=== PATIENT | female | born 1990 | race Two or more races ===

== ENCOUNTER 2025-07-23 07:56 | Emergency (ER) | payer MEDICAID, SELFPAY ==
[2025-07-23 08:05] VITALS: BP 114/84; PULSE 101; RESP 16; TEMP 36.6; O2SAT 98; BMI 25.5
--- NOTE | 2025-07-23 08:27 | PD.EDFEVER ---
ED Fever RME/HPI General Chief Complaint: Fever Stated Complaint: Fever X 5 days, nausea Time Seen by Provider: 07/23/25 08:09 Arrival date/time: 07/23/25 07:56 This is a 35-year-old female that comes into the emergency room with complaints of fever, back pain, headache for the past 5 days. Patient states today she also had some nausea and some mild abdominal pain. Patient denies any past medical history. Related Data Previous Rx's ?Medication ?Instructions ?Recorded ibuprofen 800 mg tablet 800 mg PO Q6H PRN pain #14 tabs 07/23/25 ondansetron 4 mg disintegrating 4 mg PO Q6H PRN nausea and 07/23/25 tablet vomiting #10 tabs Allergies Allergy/AdvReac Type Severity Reaction Status Date / Time Penicillins Allergy Mild Difficulty Verified 07/23/25 08:02 Breathing Review of Systems Review of Systems Systems Reviewed: All systems reviewed, normal except as documented Past Medical History Past Medical History Comments PMH COMMENT: Denies Physical Exam Narrative Physical exam: VITAL SIGNS: Reviewed. GENERAL APPEARANCE: Alert and interactive, follows commands, no acute distress, HEAD AND FACE: Non-traumatic. ENT: PERRL, conjuctiva pink and clear, eyelid no trauma, Mucous membrane moist. NECK: Supple, nontender, no nuchal rigidity. CHEST: No tenderness, no crepitus, no paradoxical movement, no retractions. LUNGS: Clear, well ventilated, symmetric, no rales, no wheezing, no rhonchi, no stridor, good breath sounds bilaterally. HEART: Regular rate, regular rhythm, no murmur, no gallops. ABDOMEN: Soft, nondistended, no guarding, nontender, no rebound, no masses, NEUROLOGICAL: Gross motor function intact sensory function intact, Appropriate for age. MUSCULOSKELETAL: low back nontender, full range of motion. EXTREMITIES: No redness no swelling no skin breakdown on bilateral foot and leg. Distal neurovascular status intact bilateral foot SKIN: Color pink, dry Course Quality Measures none Orders Category Date Time Status Bedside COVID-19 Antigen Test NOW Care 07/23/25 08:[address] abdomen pelvis wo con Stat Exams 07/23/25 11:49 Completed CBC Stat Lab 07/23/25 08:50 Completed Comprehensive Metabolic Panel Stat Lab 07/23/25 08:50 Completed HCG Qualitative,Urine Stat Lab 07/23/25 08:29 Completed Influenza A & B Rapid Panel Stat Lab 07/23/25 08:29 Completed Lipase Stat Lab 07/23/25 08:50 Completed Urinalysis, C/S if Indicated Stat Lab 07/23/25 08:29 Completed Ibuprofen Tab [Motrin Tab] Med 07/23/25 11:50 Discontinued 800 mg PO X1 ONE Ondansetron Odt [Zofran Odt] Med 07/23/25 08:23 Discontinued 4 mg PO X1 ONE Vital Signs Vital signs: Vital Signs Temperature 97.9 F 07/23/25 08:05 Pulse Rate 101 H 07/23/25 08:05 Respiratory Rate 16 07/23/25 08:05 Blood Pressure 114/84 07/23/25 08:05 Pulse Oximetry (%) 98 07/23/25 08:05 Oxygen Delivery Method Room Air 07/23/25 08:05 Fever MDM Narrative MDM Narrative:: I reviewed case with at this time will discharge patient. Spoke to patient at length. Labs reviewed. Patient CBC unremarkable BMP unremarkable. Patient does have elevated liver function test. On CT scan patient does have an enlarged liver. Patient has a history of her gallbladder being removed in the past. UA shows hematuria and some leukocyte esterase in the urine. No white blood cells really patient not really having urinary symptoms. I spoke to patient about possibly treating for UTI will send for urine culture. Patient told to follow-up with primary provider about possibly getting an ultrasound of her pelvis for a possible ovarian cyst on the left side. Patient may need another ultrasound of her liver. Unknown how long patient's liver has been enlarged. LFTs are elevated bilirubin is normal. Lipase is normal. Explained to patient at length to come back to the emergency room if symptoms change or worsen. Patient can take Tylenol ibuprofen for pain. Will treat for UTI. Pt also had a small pupule on finger approx 2-3 mm. Mild erythema. If infected keflex will tx this too. Patient denies any vaginal bleeding vaginal discharge. Patient feels comfortable with plan of care and verbalized understanding CT absdomen and pelvis: Findings: Lung bases are clear. The liver is distended to 20.1 cm with diffuse fatty infiltration. Gallbladder surgically absent. Pancreas, spleen, bilateral adrenal glands and bilateral kidneys appear normal in size and contour. Visualized GI tract is unremarkable. Appendix is not definitively visualized. 4.5 cm oval fluid density left adnexa. Pelvic structures otherwise unremarkable. No evidence of right lower quadrant inflammation. No evidence of acute bony abnormality. No evidence of significant degenerative changes seen in the visualized spine. . Impression: Hepatomegaly with diffuse fatty infiltration. 4.5 cm oval fluid density left adnexa. Findings may represent an ovarian cyst. This could be further characterized with ultrasound if clinically indicated Dragon dictation: Although this document has been carefully reviewed, there may still be some phonetic and other typographical errors. These errors are purely grammatical due to imperfections in the software program and should not be construed in any way to compromise the substance of the patient's medical care during this visit. Patient data External records reviewed:: [facility] previous records Clinical information provided by:: patient Social determinants that could affect healthcare access:: none Patient has the following chronic illnesses:: none How is presenting disease/condition affected by chronic disease/condition?: no chronic disease Evaluation data The following diagnostics were reviewed and interpreted by me:: lab results and radiology exam(s) Lab and/or radiology exams considered but not ordered:: none Interpretation Summary: see note Medications / Prescriptions Medications or Prescriptions considered but not ordered:: none Medication administrations:: Medication Administration History Discontinued Medications Ibuprofen (Ibuprofen Tab 400 Mg Tablet) 800 mg PO X1 ONE Stop: 07/23/25 11:51 Last Admin: 07/23/25 12:22 Dose: 800 mg Documented By: LEONEL Ondansetron HCl (Ondansetron Odt 4 Mg Tabrap) 4 mg PO X1 ONE; Protocol Stop: 07/23/25 08:24 Last Admin: 07/23/25 08:37 Dose: 4 mg Documented By: LAUREN casillas Consultations Consultation(s) initiated? (list below): No Diagnosis Fever Differential Diagnosis: cellulitis, community acquired pneumonia, pyelonephritis, viral infection, influenza and other (uti) Most likely diagnosis given after review of the tests above:: uti Admission Indicated Admission indicated?: not indicated Admission Request Was there a request for admission?: No Disposition Plan Disposition Plan: Discharge Discharge Attestation Discharge Attestation: The patient and all family members were given an opportunity to ask questions and understood the discharge instructions. Discharge instructions specifically effects, indications for sooner follow up or return to the emergency department, and the expected course of current diagnosis. Patient condition: Stable Discharge Plan Plan Patient Disposition: HOME (Self Care) Patient condition on transfer: Stable Prescriptions/Referrals Prescriptions/Med Rec: New ondansetron 4 mg tablet,disintegrating 4 mg PO Q6H PRN (Reason: nausea and vomiting) Qty: 10 0RF ibuprofen 800 mg tablet 800 mg PO Q6H PRN (Reason: pain) Qty: 14 0RF Referrals: Edgardo Rodriguez MD [Primary Care Provider, Family Practice] - In 1 week Problem List Clinical Impression: Hematuria, Elevated liver enzymes, Back pain, Fever Patient/Caregiver Discharge Instructions Discharge Activity: activity as tolerated Education Materials: ED Back Pain (Acute or Chronic), ED Hematuria Additional Instructions: Please call and make an appointment with primary provider in 1 to 2 days. Come back to the emergency room if symptoms change or worsen. Print Language: Polish Stand Alone Forms: Griselda Award Info., Patient Portal Info Letter PA/MANAGER NURSING HOME Supervising Physician PA/MANAGER [facility]URSING HOME Supervising Physician: nacho
[2025-07-23 08:36] LABS: Collection Type, Urine Voided
[2025-07-23] MEDS: ONDANSETRON ODT 4 MG TABRAP PO (08:37)
[2025-07-23 08:51] LABS: Bilirubin,Urine Negative (Negative); Blood,Urine 1+ (Negative); Clarity,Urine Clear (Clear/Hazy); Color,Urine Yellow (Lt Yel-Yel); Culture Indicated,Urine Not Indicated; Glucose, Urine Negative (Negative); Ketones,Urine Negative (Negative); Leukocyte Esterase,Urine Positive (Negative); Nitrite,Urine Negative (Negative); PH,Urine 6.0 (5.0-7.0); Protein,Urine 1+ (Neg - Trace); RBC,Urine 9 /hpf (0-3); Specific Gravity,Urine 1.027 (1.001-1.035); Squamous Epithelial Cell,Urine 2 /hpf (0-5); Urobilinogen,Urine Negative mg/dL (0.0-1.0); WBC,Urine 1 /hpf (0-5)
[2025-07-23 08:52] LABS: HCG Qualitative,Urine Negative
[2025-07-23 08:59] LABS: Basophils # (Auto) 0.0 Thou/mm3 (0.0-0.2); Basophils % (Auto) 0 % (0-2.5); Eosinophils # (Auto) 0.1 Thou/mm3 (0.0-0.5); Eosinophils % (Auto) 1 % (0-10); Hematocrit 41.2 % (36.0-46.0); Hemoglobin 13.6 g/dL (12.0-16.0); Immature Granulocytes Auto 0.02 Thou/mm3 (0.00-0.00); Lymphocytes # (Auto) 1.4 Thou/mm3 (1.0-4.8); Lymphocytes % (Auto) 33 % (10-50); Mean Corpuscular HGB Conc 33.0 g/dl (31.0-37.0); Mean Corpuscular Hemoglobin 28.5 pg (25.0-35.0); Mean Corpuscular Volume 86 fL (80-100); Monocytes # (Auto) 0.4 Thou/mm3 (0.0-0.8); Monocytes % (Auto) 10 % (0-12); Neutrophils # (Auto) 2.4 Thou/mm3 (1.8-7.7); Neutrophils % (Auto) 55 % (37-80); Nucleated Red Blood Cell # 0.00 Thou/mm3 (0.00-0.00); Nucleated Red Blood Cell % 0 /100 WBC (0); Platelet Count 184 Thou/mm3 (140-440); RDW Standard Deviation 40.7 fL (36.4-46.3); Red Blood Count 4.78 Miln/mm3 (4.00-5.20); White Blood Count 4.3 Thou/mm3 (3.6-11.0)
[2025-07-23 09:36] LABS: Alanine Aminotransferase 107 U/L (10-49); Albumin, Serum 4.9 gm/dL (3.5-5.0); Albumin/Globulin Ratio 1.8 (1.2-2.2); Alkaline Phosphatase 78 U/L (46-116); Anion Gap 11 (7-16); Aspartate Amino Transferase 97 U/L (0-34); BUN/Creatinine Ratio 9 Ratio (12-20); Bilirubin,Total 0.5 mg/dL (0.3-1.2); Blood Urea Nitrogen 8 mg/dL (9-23); Calcium 9.3 mg/dL (8.3-10.6); Calcium (Corrected) 9.3 mg/dL (8.5-10.1); Carbon Dioxide 25.4 mMol/L (20.0-31.0); Chloride 103 mMol/L (98-107); Creatinine (Component) 0.9 mg/dL (0.6-1.3); Estimated Creatinine Clearance 71.0 mL/min (>60); Globulin 2.7 gm/dL (2.3-3.5); Glucose 98 mg/dL (74-106); Lipase 23 U/L (12-53); Osmolality,Calculated 275 (275-295); Potassium 3.8 mMol/L (3.4-5.1); Sodium 139 mMol/L (136-145); Total Protein 7.6 gm/dL (5.7-8.2); eGFR > 60 See Note
[2025-07-23 10:41] LABS: Influenza A Ag Negative; Influenza B Ag Negative
--- NOTE | 2025-07-23 11:49 | XR_ITS ---
Examination: CT abdomen and pelvis without contrast. Coronal 3-D reconstructions. Sagittal 2-D reconstructions. Date and time of exam: 825, 12:07 p.m. INDICATION: Fever and low back pain. CTDI: vol (mGy): 6.49 DLP: (mGycm): 324 Technique: Axial images of the abdomen have been obtained, 3 mm slice thickness Intravenous contrast material has not been administered. Low dose protocols were performed. One or more of the following dose reduction techniques were used; automated exposure control, adjustment of the mA and/or KV according to patient size, use of iterative reconstruction technique. Findings: Lung bases are clear. The liver is distended to 20.1 cm with diffuse fatty infiltration. Gallbladder surgically absent. Pancreas, spleen, bilateral adrenal glands and bilateral kidneys appear normal in size and contour. Visualized GI tract is unremarkable. Appendix is not definitively visualized. 4.5 cm oval fluid density left adnexa. Pelvic structures otherwise unremarkable. No evidence of right lower quadrant inflammation. No evidence of acute bony abnormality. No evidence of significant degenerative changes seen in the visualized spine. . Impression: Hepatomegaly with diffuse fatty infiltration. 4.5 cm oval fluid density left adnexa. Findings may represent an ovarian cyst. This could be further characterized with ultrasound if clinically indicated
[2025-07-23] MEDS: IBUPROFEN TAB 400 MG TABLET 800 MG PO (12:22)
[2025-07-23 14:02] VITALS: BP 104/74; PULSE 84; RESP 16; TEMP 36.6; O2SAT 99
== END 2025-07-23 14:05 | disposition home or self-care (01) ==
PROVIDERS: Nurse Practitioner Family; Emergency Provider Emergency Medicine; PCP Family Medicine
DX: R50.9 Fever, unspecified (principal); R31.9 Hematuria, unspecified; R74.8 Abnormal levels of other serum enzymes; M54.9 Dorsalgia, unspecified
CPT/HCPCS: 36415; 74176; 80053; 81001; 81025; 83690; 85025; 87086; 87502; 87635; 99283; Q0162; A9270